=== PATIENT | female | born 1935 | race Caucasian/White ===

== ENCOUNTER 2017-03-19 16:26 | Emergency (ER) | payer MEDICARE ==
[~2017-03-19] VITALS: Ht 157.5 cm; Wt 60.9 kg
[2017-03-19 16:29] VITALS: TEMP 97.9
[2017-03-19] MEDS ORDERED: ALBUTEROL SULFAT3 M3 (16:51)
[2017-03-19] MEDS ORDERED: DOXYCYCLINE 10100 MG PO (17:47)
[2017-03-19] MEDS ORDERED: PREDNISONE20 MG PO (17:47)
[2017-03-19 19:01] VITALS: BP 145/86; PULSE 80
== END 2017-03-19 19:00 | disposition home or self-care (01) ==
LOC: COL.ER 16:26
DX: J45.901 Unspecified asthma with (acute) exacerbation (principal); J20.9 Acute bronchitis, unspecified
CPT/HCPCS: J7512